=== PATIENT | male | born 1980 | race Hispanic/Latino ===

== ENCOUNTER 2017-12-21 22:23 | Emergency (ER) | payer OTHER ==
[2017-12-21] MEDS ORDERED: DEXAMETHASONE SOD PHOSPHATE 10MG/ML 1ML VIAL ONE (22:58)
[2017-12-21] MEDS ORDERED: CEFTRIAXONE SODIUM 1 GM ONE (22:59)
[2017-12-21] MEDS ORDERED: LIDOCAINE HCL-MPF 1% 2ML VIAL ONE (22:59)
== END 2017-12-21 23:10 | disposition home or self-care (01) ==
LOC: EDH 22:23
DX: J02.9 Acute pharyngitis, unspecified (principal); R21 Rash and other nonspecific skin eruption
CPT/HCPCS: 96372 ×2; 99284; J0696; J1100; J3490

== ENCOUNTER 2021-02-26 01:43 | Emergency (ER) | payer BC, OTHER ==
[2021-02-26] MEDS ORDERED: ORPHENADRINE CITRATE 30 MG/ML ML ONE (02:45)
[2021-02-26] MEDS ORDERED: KETOROLAC TROMETHAMINE 30MG/ML ONE (02:45)
[2021-02-26] MEDS ORDERED: SODIUM CHLORIDE 0.9% 1000ML 1,000 ML IV ONE (02:46)
[2021-02-26 03:15] LABS: APPEARANCE,URINE Clear (CLEAR); BILIRUBIN,URINE Negative (NEGATIVE); COLOR,URINE Yellow (YELLOW); GLUCOSE, URINE (UA) Negative (NEGATIVE); KETONES,URINE Negative (NEGATIVE); LEUKOCYTE ESTERASE ,URINE Negative (NEGATIVE); NITRATE,URINE Negative (NEGATIVE); OCCULT BLOOD,URINE Negative (NEGATIVE); PH,URINE 5.5 (5.0-8.0); PROTEIN,URINE Negative (NEGATIVE)
[2021-02-26 03:20] LABS: BASOPHILS % (AUTO) 0.9 % (0.0-5.0); EOSINOPHILS % (AUTO) 1.3 % (0.0-8.0); HEMATOCRIT 44.2 % (42-54); MEAN CORPUSCULAR HGB CONC 33.5 g/dL (32.0-36.0); MEAN CORPUSCULAR VOLUME 89.5 fL (79-99); MONOCYTES % (AUTO) 8.8 % (3.0-13.0); NEUTROPHILS % (AUTO) 73.7 % (40.0-77.0); PLATELET COUNT (AUTO) 289 K/uL (130-400); RED BLOOD CELL COUNT(AUTO) 4.94 MIL/uL (4.50-6.20); RED CELL DISTRIBUTION WIDTH 13.1 % (11.0-15.5)
[2021-02-26 03:22] LABS: CREATININE 1.1 mg/dL (0.5-1.5); POTASSIUM 4.2 mmol/L (3.5-5.1)
[2021-02-26 03:26] LABS: ALBUMIN 3.5 g/dL (3.5-5.0); BILIRUBIN,TOTAL 0.3 mg/dL (0.2-1.0); PROTHROMBIN TIME 10.9 SEC (9.6-11.6)
[2021-02-26 03:27] LABS: PARTIAL THROMBOPLASTIN TIME 25.6 SEC (26.3-35.5)
== END 2021-02-26 04:40 | disposition home or self-care (01) ==
LOC: EDH 01:43
DX: S29.012A Strain of muscle and tendon of back wall of thorax, initial encounter (principal); S29.011A Strain of muscle and tendon of front wall of thorax, initial encounter; R10.9 Unspecified abdominal pain; F14.90 Cocaine use, unspecified, uncomplicated; X58.XXXA Exposure to other specified factors, initial encounter; Y93.89 Activity, other specified; Y92.89 Other specified places as the place of occurrence of the external cause; Y99.8 Other external cause status
CPT/HCPCS: 36415; 71250; 74176; 80053; 81003; 85025; 85610; 85730; 93005; 96361; 96374; 96375; 99285; J1885; J2360; J7030

== ENCOUNTER 2021-05-20 21:42 | Emergency (ER) | payer BC ==
[~2021-05-20] VITALS: Ht 167.6 cm; Wt 113.4 kg
[2021-05-20] MEDS ORDERED: HYDR25SU38 RC (22:35)
[2021-05-20] MEDS: HYDROCODONE/ACETAMINOPHEN 10/325 MG TAB PO ONE (22:56)
[2021-05-20 22:57] VITALS: BP 168/65
== END 2021-05-20 23:08 | disposition home or self-care (01) ==
LOC: EDH 21:42
DX: K64.4 Residual hemorrhoidal skin tags (principal)

== ENCOUNTER 2024-02-29 06:34 | Day surgery (SDC) | payer BC ==
[2024-02-25 11:40] LABS: BASOPHILS # (AUTO) 0.08 K/uL (0.00-0.20); EOSINOPHILS # (AUTO) 0.11 K/uL (0.00-0.70); EOSINOPHILS % (AUTO) 1.4 % (0.0-8.0); HEMATOCRIT 47.4 % (42-54); IMMATURE GRANULOCYTE ABSOLUTE 0.05 K/uL (0-1); LYMPHOCYTES # (AUTO) 1.4 K/uL (1.0-4.8); LYMPHOCYTES % (AUTO) 17.6 % (21.0-51.0); MEAN CORPUSCULAR HEMOGLOBIN 30.9 pg (27.0-33.0); MEAN CORPUSCULAR HGB CONC 33.8 g/dL (32.0-36.0); MEAN CORPUSCULAR VOLUME 91.7 fL (79-99); MONOCYTES # (AUTO) 0.7 K/uL (0.1-1.0); MONOCYTES % (AUTO) 9.5 % (3.0-13.0); NEUTROPHILS # (AUTO) 5.4 K/uL (1.8-7.7); NEUTROPHILS % (AUTO) 69.9 % (40.0-77.0); PLATELET COUNT (AUTO) 309 K/uL (130-400); RED BLOOD CELL COUNT(AUTO) 5.17 MIL/uL (4.50-6.20); RED CELL DISTRIBUTION WIDTH 13.4 % (11.0-15.5); WHITE BLOOD COUNT (AUTO) 7.7 K/uL (4.8-10.8)
[2024-02-25 11:55] LABS: CREATININE 1.1 mg/dL (0.5-1.3); POTASSIUM 4.5 mmol/L (3.5-5.1)
[2024-02-25 12:18] VITALS: BP 140/86; PULSE 57; RESP 18
[2024-02-29] VITALS (14 sets, daily range): BP systolic 114–146; BP diastolic 65–94; PULSE 60–81; RESP 12–17
[~2024-02-29] VITALS: Ht 170.2 cm; Wt 108.9 kg
[~2024-02-29 06:34] MED LIST: SERT-439 PO
[2024-02-29] MEDS ORDERED: CEFAZOLIN SODIUM 1 GM VIAL ONE (06:54)
[2024-02-29] MEDS ORDERED: CEFAZOLIN SODIUM 2 GM VIAL ONE (06:54)
[2024-02-29] MEDS: LACTATED RINGERS 1000ML 1,000 ML IV ONE (07:24)
[2024-02-29] MEDS ORDERED: BUPIVACAINE/PF 0.5% 30ML VIAL ONE (08:05)
[2024-02-29] MEDS: BUPIVACAINE/PF 0.5% 30ML VIAL INJ ONE ×2 (08:33→09:50)
[2024-02-29] MEDS ORDERED: FAMOTIDINE 20MG VIAL IV ONE (09:05)
[2024-02-29] MEDS ORDERED: ACETAMINOPHEN 1,000 MG/100 ML VIAL IV ONE (09:05)
[2024-02-29] MEDS ORDERED: KETAMINE 50MG/ML SYRINGE 50 MG/ML DISP.SYRIN ONE (09:06)
[2024-02-29] MEDS ORDERED: PROPOFOL 10 MG/ML 20ML VIAL IV ONE (09:08)
[2024-02-29] MEDS ORDERED: ROCURONIUM BROMIDE 10MG/1ML 5ML VL ONE (09:08)
[2024-02-29] MEDS ORDERED: FENTANYL CITRATE PF 50 MCG/1 ML 2ML VIAL ONE (09:08)
[2024-02-29] MEDS ORDERED: LIDOCAINE PF 100MG/5ML (2%) SYRINGE 5ML ONE (09:08)
[2024-02-29] MEDS ORDERED: ONDANSETRON 4MG INJ ONE (09:22)
[2024-02-29] MEDS ORDERED: DEXAMETHASONE SOD PHOSPHATE 10MG/ML 1ML VIAL ONE (09:22)
[2024-02-29] MEDS ORDERED: SUGAMMADEX SODIUM 200 MG/2 ML VIAL IV ONE (09:49)
[2024-02-29] MEDS: MEPERIDINE-PF 25 MG/ML SYG ONE (10:23)
[2024-02-29] MEDS: ONDANSETRON 4MG INJ ONE (10:23)
[2024-02-29] MEDS ORDERED: HYDROCODONE/ACETAMINOPHEN 5/325 MG TAB ONE (11:00)
[2024-02-29] MEDS ORDERED: KETOROLAC 30MG VIAL (30MG/ML) ONE (11:00)
[2024-02-29] MEDS: HYDROCODONE/ACETAMINOPHEN 5/325 MG TAB PO ONE (11:02)
[2024-02-29] MEDS: KETOROLAC 30MG VIAL (30MG/ML) IVP ONE (11:02)
[2024-02-29] MEDS ORDERED: IBUP-1493 PO (11:19)
== END 2024-02-29 11:45 | disposition home or self-care (01) ==
LOC: DAH 06:34
PROVIDERS: ATTEND Surgery
DX: K42.0 Umbilical hernia with obstruction, without gangrene (principal); F32.A Depression, unspecified; Z88.3 Allergy status to other anti-infective agents
CPT/HCPCS: 80048; 85025; 36415; 49592; A6260; A4663; J7120 ×2; A4452; J0690 ×3; J3490 ×3; J3010; J1100; J2001; J2704; J2405 ×2; J1885; J0665 ×2; J2175; A4930 ×2; A4215; A4223; A4213; A4222; A4221; A4600

== ENCOUNTER 2025-07-17 17:44 | Emergency (ER) | payer BC ==
[~2025-07-17] VITALS: Ht 170.2 cm; Wt 104.3 kg
[~2025-07-17 17:44] MED LIST changes: +IBUP-1493 PO
--- NOTE | 2025-07-17 18:06 | EKG ---
[facility] Test Date: 2025-07-17 Test Time: 18:00:58 Pat Name: DINA ULLOA Department: [facility] Room: Gender: M [employer]ulatory Affairs Spec: [id number] : 1980 Requested By: CHAZ GEORGES Order Number: [id number] Reading MD: Justine Nunn Measurements Intervals [place] Rate: 88 P: 34 MS: 139 QRS: -59 QRSD: 101 T: 57 QT: 343 QTc: 415 Interpretive Statements Sinus rhythm Left anterior fascicular block Compared to ECG 02/26/2021 02:48:02 Left anterior fascicular block now present Left-axis deviation no longer present Left ventricular hypertrophy no longer present Electronically Signed On 07-18-2025 16:11:32 CDT by Justine Nunn Please click the below link to view image of tracing.
[2025-07-17 18:16] LABS: IMMATURE GRANULOCYTE ABSOLUTE 0.02 K/uL (0-1); NUCLEATED RED BLOOD CELLS 0.0 % (0.0-0.19); PLATELET COUNT (AUTO) 322 K/uL (130-400); RED BLOOD CELL COUNT(AUTO) 5.05 MIL/uL (4.50-6.20); RED CELL DISTRIBUTION WIDTH 12.8 % (11.0-15.5); WHITE BLOOD COUNT (AUTO) 8.6 K/uL (4.8-10.8)
[2025-07-17 18:27] LABS: CREATININE 1.0 mg/dL (0.5-1.3); GLOMERULAR FILTR. RATE CALC 94.0 mL/min (>90); GLUCOSE,RANDOM 130.0 mg/dL (70-105); SODIUM SERUM 141.0 mmol/L (136-145); UREA NITROGEN, BLOOD 12.0 mg/dL (7-18)
--- NOTE | 2025-07-17 18:33 | ERN ---
General Chief Complaint: Nausea,Vomiting,Diarrhea Stated Complaint: HICCUPS, CHEST PRESSURE, N/V Time Seen by MD: 17:47 Time Seen by Midlevel: 17:47 Source: patient History of Present Illness Initial Comments 45-year-old male presenting to the ER for evaluation of multiple complaints. His main concern is he has had hiccups for the past 10 days. He has visited who emergency department twice in the last week for the same complaint. Today he now reports chest discomfort with associated nausea and vomiting. He does report a recent hernia repair proximally one month ago in his concern his nausea and vomiting are related to this. Denies any other symptoms he does admit to being prescribed multiple steroids over the last week in his unsure if that is what is causing his symptoms Allergies: Coded Allergies: iodine (Unverified Allergy, Severe, FACIAL ITCHING, SWELLING, SNEEZING, 02/29/24) Home Meds Reported Medications Ibuprofen (Motrin/Advil) 800 Mg Tab, 800 MG PO TIDP PRN for PAIN, TAB 02/29/24 Sertraline HCl (Sertraline HCl) 50 Mg Tablet, 1 TAB PO DAILY 02/25/24 Past Medical History Past Medical History: No Pertinent History Past Surgical History: Other Surgical History Other: UMBILICAL HERNIA ROS Dictation CONSTITUTIONAL: Negative except for HPI HEAD/FACE: Negative except for HPI EENT: Negative except for HPI RESPIRATORY: Negative except for HPI GASTROINTESTINAL/ABDOMINAL: Negative except for HPI GENITOURINARY: Negative except for HPI MUSCULOSKELETAL: Negative except for HPI INTEGUMENTARY: Negative except for HPI NEUROLOGICAL/PSYCH: Negative except for HPI HEMATOLOGIC/LYMPHATIC: Negative except for HPI All Systems Negative, Except as noted above. 13 point review of systems assessed and all negative except for above. Physical Exam Physical Exam Dictation Vital Signs reviewed General Appearance: Alert, oriented x 3, no acute distress, well developed, nourished. Head and Face: non-traumatic. Eyes: PERRL, pink conjunctivas, eyelid no trauma, anterior chamber with arcus senilis. Ears: Pinnas intact and no signs of trauma or erythema ear canals clear and no discharge TM no erythema Nose: No discharge, no bleeding. Oropharynx: Mouth normal, tongue pink, pharynx clear,no erythema, tonsils no exudates, no abscesses noted, mucous membrane moist Neck: Supple, non-tender, no thyromegaly, no masses, no JVD, no bruits Breast:Deferred Chest:No tenderness, no crepitus, no paradoxical movement, no retractions Lungs:Clear, well-ventilated, symmetric, no rales, no wheezing, no rhonchi, no stridor, good breath sounds bilaterally Heart: Regular rate, regular rhythm, no murmur, no gallops Vascular: no peripheral edema, Abdomen: Soft, positive bowel sounds, nondistended, no guarding, nontender, no rebound, no masses no hepatomegaly, no splenomegaly, no Quijano's sign, no hernias. Rectal: Deferred Genital: Deferred Neurological: Normal speech, motor function intact, sensory function intact Musculoskeletal: Neck nontender, full range of motion, back nontender, full range of motion, Extremities: nontender, full range of motion Skin: Color pink, dry, no turgor, no rash, no lacerations, no abrasions, no contusions. Lymphatic: Deferred Results Laboratory and Microbiology Lab and Micro Result Laboratory Tests Test 07/17/25 18:08 White Blood Count 8.6 K/uL (4.8-10.8) Red Blood Count 5.05 MIL/uL (4.50-6.20) Hemoglobin 15.5 g/dL (14.0-18.0) Hematocrit 46.1 % (42-54) Mean Corpuscular Volume 91.3 fL (79-99) Mean Corpuscular Hemoglobin 30.7 pg (27.0-33.0) Mean Corpuscular Hemoglobin Concent 33.6 g/dL (32.0-36.0) Red Cell Distribution Width 12.8 % (11.0-15.5) Platelet Count 322 K/uL (130-400) Mean Platelet Volume 9.2 fL (7.5-10.5) Immature Granulocyte % (Auto) 0.2 % (0-1) Neutrophils (%) (Auto) 77.5 % (40.0-77.0) H Lymphocytes (%) (Auto) 12.6 % (21.0-51.0) L Monocytes (%) (Auto) 7.6 % (3.0-13.0) Eosinophils (%) (Auto) 1.2 % (0.0-8.0) Basophils (%) (Auto) 0.9 % (0.0-5.0) Neutrophils # (Auto) 6.6 K/uL (1.8-7.7) Lymphocytes # (Auto) 1.1 K/uL (1.0-4.8) Monocytes # (Auto) 0.7 K/uL (0.1-1.0) Eosinophils # (Auto) 0.10 K/uL (0.00-0.70) Basophils # (Auto) 0.08 K/uL (0.00-0.20) Absolute Immature Granulocyte (auto 0.02 K/uL (0-1) Nucleated Red Blood Cells 0.0 % (0.0-0.19) D-Dimer Quantitative (PE/DVT) 522 ng/mL (0-500) *H Sodium Level 141 mmol/L (136-145) Potassium Level 3.6 mmol/L (3.5-5.1) Chloride Level 105 mmol/L (101-111) Carbon Dioxide Level 26 mmol/L (21-32) Blood Urea Nitrogen 12 mg/dL (7-18) Creatinine 1.0 mg/dL (0.5-1.3) Glomerular Filtration Rate Calc 94 mL/min (>90) Random Glucose 130 mg/dL (70-105) H Total Calcium 8.4 mg/dL (8.5-10.1) L Magnesium Level 1.80 mg/dL (1.80-2.40) Total Bilirubin 0.3 mg/dL (0.2-1.0) Aspartate Amino Transf (AST/SGOT) 32 U/L (10-37) Alanine Aminotransferase (ALT/SGPT) 51 U/L (12-78) Alkaline Phosphatase 75 U/L (50-136) Troponin I High Sensitivity 6 ng/L (4-75) B-Type Natriuretic Peptide 41 pg/mL (0-100) Total Protein 7.3 g/dL (6.0-8.3) Albumin 3.5 g/dL (3.5-5.0) Lipase 23 U/L (16-77) Labs Reviewed?: Yes MDM MDM: Differential diagnosis: Acute coronary syndrome, bowel obstruction, dehydration, electrolyte abnormality, pancreatitis There are no social concerns with this patient. Prescription drug management Prescriptions will include: Medical management and examination interpretation discussions were had by me with other qualified healthcare professionals as indicated for the patient's care. ED Course Orders Procedure Category Date Status Time Cbc With Differential LAB 07/17/25 Complete 17:56 Comprehensive LAB 07/17/25 Complete Metabolic Panel 17:56 Lipase LAB 07/17/25 Complete 17:56 Magnesium LAB 07/17/25 Complete 17:56 B-Type Natriuretic LAB 07/17/25 Complete Peptide 17:56 12 Lead Ekg Tracing- EKG 07/17/25 Complete Technical 17:56 Troponin I High LAB 07/17/25 Complete Sensitivity 17:56 D-Dimer LAB 07/17/25 Complete 17:56 Ct Abdomen/Pelvis W/O CT 07/17/25 Resulted Contrast 20:58 0.9%Nacl 1000ml (Ns PHA 07/17/25 Complete 1000ml) 21:00 Ondansetron 4mg Inj PHA 07/17/25 Complete (Zofran 4mg Inj) 21:00 Famotidine 20mg Vial PHA 07/17/25 Complete (Pepcid 20mg Vial) 21:00 Chlorpromazine Hcl PHA 07/17/25 Complete (Thorazine 25mg Tab) 22:30 Current Medications Medications (Trade) Dose Ordered Sig/Laura Route PRN Reason Start Time Stop Time Status Last Admin Dose Admin Chlorpromazine HCl (ThorAZINE 25MG TAB) 25 mg ONCE ONCE PO 07/17/25 22:30 07/17/25 22:31 DC 07/17/25 22:58 Famotidine (Pepcid 20mg Vial) 20 mg ONCE ONCE IV 07/17/25 21:00 07/17/25 21:01 DC 07/17/25 22:58 Ondansetron HCl (zoFRAN 4MG INJ) 4 mg ONCE ONCE IVP 07/17/25 21:00 07/17/25 21:01 DC 07/17/25 22:58 Sodium Chloride 1,000 ml @ 0 mls/hr ONCE ONCE IV 07/17/25 21:00 07/17/25 21:01 DC 07/17/25 22:58 Vital Signs Date Time Temp Pulse Resp B/P (MAP) Pulse Ox O2 Delivery O2 Flow Rate FiO2 07/17/25 23:22 98.4 88 18 135/66 99 Room Air* 0 21 07/17/25 17:45 98.2 91 16 132/83 96 Room Air 0 DX & DISP Disposition: Discharge Departure Impression: Primary Impression: Intractable hiccups Condition: Stable Additional Instructions: Your blood work today is unremarkable. Your CT scan of the abdomen/pelvis does not show any evidence of an obstruction or any other abnormalities. Your EKG is normal. Your heart tests are normal. There was no evidence of a heart attack. Your hiccups are most likely related to the steroid medication you have been given. Follow up with your primary care doctor in 2-3 days for repeat evaluation. You were also given a one time dose of Thorazine which should help improve your hiccups. Referrals: JOANNE SANDOVAL MD (PCP) I have reviewed the case, and I agree with, Diagnosis and Plan I performed the substantive portion of the visit. I have reviewed and personally made and approve the management plan that is documented in the note by myself or the GWENDOLYN. I acknowledge for responsibility for the patient's management plan. CHAZ GEORGES Jul 17, 2025 18:33
[2025-07-17 18:42] LABS: ASPARTATE AMINOTRANSFERASE 32.0 U/L (10-37); TOTAL PROTEIN, SERUM 7.3 g/dL (6.0-8.3)
--- NOTE | 2025-07-17 21:54 | HMCIMG ---
EXAM: CT Abdomen and Pelvis without Intravenous Contrast CLINICAL HISTORY: Hernia repair. TECHNIQUE: Axial computed tomography images of the abdomen and pelvis without intravenous contrast. Dose reduction technique was used including one or more of the following: automated exposure control, adjustment of mA and kV according to patient size, and/or iterative reconstruction. CONTRAST: Without. COMPARISON: CT Chest/Ab/Pelv 02:48 02/26/21 FINDINGS: LIMITATIONS/ARTIFACTS: Soft tissue motion artifact limits evaluation. LUNG BASES: No basilar airspace consolidation or pleural effusion. LIVER: Unremarkable. GALLBLADDER AND BILE DUCTS: Unremarkable. No calcified stone. No ductal dilation. PANCREAS: Unremarkable. SPLEEN: Unremarkable. ADRENAL GLANDS: Unremarkable. KIDNEYS, URETERS, AND BLADDER: Unremarkable. No hydronephrosis or nephrolithiasis. No ureteral or bladder calculi. STOMACH AND BOWEL: No obstruction. No wall thickening. No CT evidence of colitis or acute diverticulitis. APPENDIX: Normal appendix. PERITONEUM: No free fluid. No free air. LYMPH NODES: No lymphadenopathy. REPRODUCTIVE: Unremarkable as visualized. VASCULATURE: No aortic aneurysm. ABDOMINAL WALL AND SOFT TISSUES: Small bilateral inguinal hernias containing mesenteric fat. BONES: Mild degenerative changes at L5-S1. No fracture or suspicious osseous abnormality. IMPRESSION: 1. No acute intra-abdominal or pelvic abnormality related to the hernia repair. 2. Small bilateral inguinal hernias containing mesenteric fat. /[place]
[2025-07-17] MEDS: 0.9%NACL 1000ML 1,000 ML IV ONE (22:58)
[2025-07-17] MEDS: FAMOTIDINE 20MG VIAL IV ONE (22:58)
--- NOTE | 2025-07-17 23:08 | NUR ---
discharge pending iv fluids to complete
[2025-07-17 23:22] VITALS: BP 135/66; PULSE 88; RESP 18; TEMP 98.5; O2SAT 99
== END 2025-07-17 23:40 | disposition home or self-care (01) ==
LOC: EDH 17:44
DX: R06.6 Hiccough (principal); Z88.8 Allergy status to other drugs, medicaments and biological substances; Z98.890 Other specified postprocedural states
CPT/HCPCS: 99284; 74176; 96374; 96375; 83735; 84484; 80053; 83880; 83690; 85025; 85378; 36415; 93005; J1308; J7030; Q0161; J2405

== ENCOUNTER 2025-07-19 12:59 | Emergency (ER) | payer BC ==
[~2025-07-19] VITALS: Ht 170.2 cm; Wt 104.3 kg
[2025-07-19] MEDS: LIDOCAINE HCL 2% VISCOUS 15 ML UDCUP PO ONE (13:36)
[2025-07-19] MEDS: DICYCLOMINE HCL 10 MG/5 ML ML PO ONE (13:36)
[2025-07-19] MEDS: MAG/ALUM/SIMETH 30 ML UDCUP PO ONE (13:36)
[2025-07-19 13:52] LABS: IMMATURE GRANULOCYTE ABSOLUTE 0.02 K/uL (0-1); NUCLEATED RED BLOOD CELLS 0.0 % (0.0-0.19); PLATELET COUNT (AUTO) 318 K/uL (130-400); RED BLOOD CELL COUNT(AUTO) 5.45 MIL/uL (4.50-6.20); RED CELL DISTRIBUTION WIDTH 12.8 % (11.0-15.5); WHITE BLOOD COUNT (AUTO) 8.2 K/uL (4.8-10.8)
[2025-07-19 14:00] LABS: APPEARANCE,URINE CLEAR (CLEAR); GLUCOSE, URINE (UA) NEGATIVE (NEGATIVE); LEUKOCYTE ESTERASE ,URINE NEGATIVE Leu/uL (NEGATIVE); NITRATE,URINE NEGATIVE (NEGATIVE); OCCULT BLOOD,URINE NEGATIVE (NEGATIVE)
[2025-07-19 14:01] LABS: CREATININE 0.9 mg/dL (0.5-1.3); GLOMERULAR FILTR. RATE CALC 107.0 mL/min (>90); GLUCOSE,RANDOM 109.0 mg/dL (70-105); SODIUM SERUM 140.0 mmol/L (136-145); UREA NITROGEN, BLOOD 12.0 mg/dL (7-18)
[2025-07-19 14:04] LABS: ADD UA MICROSCOPIC NO
[2025-07-19 14:07] LABS: ASPARTATE AMINOTRANSFERASE 31.0 U/L (10-37); TOTAL PROTEIN, SERUM 7.9 g/dL (6.0-8.3)
[2025-07-19 14:08] LABS: AMPHET/METH SCREEN,URINE NEGATIVE (NEGATIVE); BARBITURATE SCREEN, URINE NEGATIVE (NEGATIVE); CANNABINOID SCREEN,URINE NEGATIVE (NEGATIVE); COCAINE SCREEN,URINE NEGATIVE (NEGATIVE)
--- NOTE | 2025-07-19 14:56 | HMCIMG ---
EXAM: CR Chest, 1 View. CLINICAL HISTORY: cp COMPARISON: CT scan Feb 25 2021 FINDINGS: LUNGS: There is no mass, infiltrate, or acute pulmonary abnormality. PLEURAL SPACES: No evidence of pleural effusion or pneumothorax. MEDIASTINUM: Cardiac size and mediastinal contours within normal limits. BONES: No aggressive appearing osseous lesion seen. IMPRESSION: No acute cardiopulmonary pathology is evident. /[place]
[2025-07-19 15:18] VITALS: BP 117/65; PULSE 60; RESP 17; TEMP 98.2; O2SAT 96
--- NOTE | 2025-07-19 15:27 | ERN ---
ED Note History of Present Illness Stated Complaint: CHEST PAIN Chief Complaint: Chest Pain Time Seen by MD: 13:06 Time Seen by Midlevel: 13:10 Dictation: 45 y/o c/o lower abdominal pain, hiccups, and states for the last three days his stool has gotten darker. Patient states was seen here for the same complaint and was discharged home. Patient also states tomorrow he has not appointment with the refrigerator cabinetmaker bedside to come in today for the dark stools. Allergies: Coded Allergies: iodine (Unverified Allergy, Severe, FACIAL ITCHING, SWELLING, SNEEZING, 02/29/24) Home Meds Reported Medications Ibuprofen (Motrin/Advil) 800 Mg Tab, 800 MG PO TIDP PRN for PAIN, TAB 02/29/24 Sertraline HCl (Sertraline HCl) 50 Mg Tablet, 1 TAB PO DAILY 02/25/24 Past Medical History Past Medical History: No Pertinent History Surgical History: Other Surgical History Other: ABD HERNIA REPAIR Review of System Dictation Constitutional: Negative for fever,chills, and weight loss Eyes: Negative for injury, pain,redness, and discharge ENT: Negative for injury,pain or swelling Cardiovascular: Negative for chest pain, palpitations, and edema Respiratory: Negative for shortness of breath, cough, and wheezing, Abdomen/GI: Positive for lower abdominal pain, no nausea, no vomiting, no diarrhea, and no constipation Back: Negative for injury and pain : Negative for injury, bleeding and discharge MS/Extremity: Negative for injury and deformity Skin: Negative for rash, and discoloration Neuro: Negative for headache, weakness, numbness, tingling, and seizure Psych: Negative for suicide ideation, homicidal ideation, and hallucinations Review of Systems: was completed Initial Vital Sign VS Vital Signs Date Time Temp Pulse Resp B/P (MAP) Pulse Ox O2 Delivery O2 Flow Rate FiO2 07/19/25 13:00 98.4 94 18 114/70 97 Room Air 0 07/19/25 13:25 21 Physical Exam Dictation General: awake, alert, NAD Head/Face: Normocephalic, atraumatic Eyes: PERRL, EOMI, vision at baseline ENT: oral cavity clear, TMs clear, no signs of infection Neck: Trachea midline, supple, no nuchal rigidity Cardiovascular: RRR, normal S1/S2, No MRGs, no JVD Respiratory: CTAB, no respiratory distress, No rales or wheezes Abdomen: Soft, non-tender, non-distended, normal bowel sounds, no guarding or rebound. Skin: Warm, dry, normal turgor, no rash MS/Extremity: Pulses equal, no cyanosis, neurovascular intact, FROM Neuro: COAx4, GCS 15, strength 5/5, CN 2-12 intact, normal cerebellar exam, normal gait, Psych: Normal behavior, mood, and affect normal Results (Laboratory/Radiology) Laboratory/Radiology Laboratory Tests Test 07/19/25 13:16 White Blood Count 8.2 K/uL (4.8-10.8) Red Blood Count 5.45 MIL/uL (4.50-6.20) Hemoglobin 16.8 g/dL (14.0-18.0) Hematocrit 50.6 % (42-54) Mean Corpuscular Volume 92.8 fL (79-99) Mean Corpuscular Hemoglobin 30.8 pg (27.0-33.0) Mean Corpuscular Hemoglobin Concent 33.2 g/dL (32.0-36.0) Red Cell Distribution Width 12.8 % (11.0-15.5) Platelet Count 318 K/uL (130-400) Mean Platelet Volume 9.4 fL (7.5-10.5) Immature Granulocyte % (Auto) 0.2 % (0-1) Neutrophils (%) (Auto) 79.9 % (40.0-77.0) H Lymphocytes (%) (Auto) 9.9 % (21.0-51.0) L Monocytes (%) (Auto) 8.2 % (3.0-13.0) Eosinophils (%) (Auto) 0.9 % (0.0-8.0) Basophils (%) (Auto) 0.9 % (0.0-5.0) Neutrophils # (Auto) 6.5 K/uL (1.8-7.7) Lymphocytes # (Auto) 0.8 K/uL (1.0-4.8) L Monocytes # (Auto) 0.7 K/uL (0.1-1.0) Eosinophils # (Auto) 0.07 K/uL (0.00-0.70) Basophils # (Auto) 0.07 K/uL (0.00-0.20) Absolute Immature Granulocyte (auto 0.02 K/uL (0-1) Nucleated Red Blood Cells 0.0 % (0.0-0.19) White Cell Morphology Comment See comments Urine Color LIGHT-YELLOW (YELLOW) Urine Appearance CLEAR (CLEAR) Urine pH 5.5 (5.0-8.0) Urine Specific [place] 1.015 (1.001-1.031) Urine Protein NEGATIVE mg/dL (NEGATIVE) Urine Glucose (UA) NEGATIVE mg/dL (NEGATIVE) Urine Ketones NEGATIVE mg/dL (NEGATIVE) Urine Occult Blood NEGATIVE (NEGATIVE) Urine Nitrate NEGATIVE (NEGATIVE) Urine Bilirubin NEGATIVE mg/dL (NEGATIVE) Urine Urobilinogen 0.2 mg/dL (0.2-1.0) Urine Leukocyte Esterase NEGATIVE [place]/uL Sodium Level 140 mmol/L (136-145) Potassium Level 3.6 mmol/L (3.5-5.1) Chloride Level 103 mmol/L (101-111) Carbon Dioxide Level 28 mmol/L (21-32) Blood Urea Nitrogen 12 mg/dL (7-18) Creatinine 0.9 mg/dL (0.5-1.3) Glomerular Filtration Rate Calc 107 mL/min (>90) Random Glucose 109 mg/dL (70-105) H Total Calcium 8.6 mg/dL (8.5-10.1) Total Bilirubin 0.3 mg/dL (0.2-1.0) Direct Bilirubin 0.1 mg/dL (0.0-0.3) Aspartate Amino Transf (AST/SGOT) 31 U/L (10-37) Alanine Aminotransferase (ALT/SGPT) 55 U/L (12-78) Alkaline Phosphatase 80 U/L (50-136) Troponin I High Sensitivity 6 ng/L (4-75) Total Protein 7.9 g/dL (6.0-8.3) Albumin 3.9 g/dL (3.5-5.0) Lipase 24 U/L (16-77) Urine Opiates Screen NEGATIVE (NEGATIVE) Urine Barbiturates Screen NEGATIVE (NEGATIVE) Urine Phencyclidine Screen NEGATIVE (NEGATIVE) Urine Amphetamines Screen NEGATIVE (NEGATIVE) Urine Benzodiazepines Screen NEGATIVE (NEGATIVE) Urine Cocaine Screen NEGATIVE (NEGATIVE) Urine Marijuana (THC) Screen NEGATIVE (NEGATIVE) X-RAY Comment: [id number] [id number] IMAGING REPORT Signed PATIENT: DINA ULLOA MR#: [id number] : 1980 SEX: M AGE: 45 LOCATION: [facility] ORDER 28 STATUS: REG ER REPORT#: [id number] SERVICE 27 REASON: cp ORDERING PHYSICIAN: LUCILLE PEREZ PROCEDURE: CXR1VW - CHEST 1VW EXAM: CR Chest, 1 View. CLINICAL HISTORY: cp COMPARISON: CT scan Feb 25 2021 FINDINGS: LUNGS: There is no mass, infiltrate, or acute pulmonary abnormality. PLEURAL SPACES: No evidence of pleural effusion or pneumothorax. MEDIASTINUM: Cardiac size and mediastinal contours within normal limits. BONES: No aggressive appearing osseous lesion seen. IMPRESSION: No acute cardiopulmonary pathology is evident. /[place] DICTATED BY: EDD MEDINA MD DATE: 07/19/251554 ELECTRONICALLY SIGNED BY: EDD MEDINA MD DATE: 07/19/251554 ED Course ED Course Orders Procedure Category Date Status Time Cbc With Differential LAB 07/19/25 Complete 13:07 Basic Metabolic Panel LAB 07/19/25 Complete 13:07 Troponin I High LAB 07/19/25 Complete Sensitivity 13:07 Hepatic Function Panel LAB 07/19/25 Complete 13:07 Urinalysis Profile LAB 07/19/25 Complete 13:17 Drug Screen Urine LAB 07/19/25 Complete 13:17 Chest 1vw RAD 07/19/25 Resulted 13:28 Ketorolac PHA 07/19/25 Complete Tromethamine 15mg/Ml 13:30 Lidocaine Hcl 2% PHA 07/19/25 Complete Viscous (Lidocaine Hcl 13:30 Mag/Alum/Simeth 30ml PHA 07/19/25 Complete (Maalox Plus 30ml) 13:30 Dicyclomine Hcl PHA 07/19/25 Complete (Bentyl 10mg/5ml 13:30 Lipase LAB 07/19/25 Complete 13:16 12 Lead Ekg Tracing- EKG 07/19/25 Complete Technical 12:47 Current Medications Medications (Trade) Dose Ordered Sig/Laura Route PRN Reason Start Time Stop Time Status Last Admin Dose Admin Al Hydroxide/Mg Hydroxide (MAALox PLUS 30ML) 30 ml ONCE ONCE PO 07/19/25 13:30 07/19/25 13:33 DC 07/19/25 13:36 Dicyclomine HCl (Bentyl 10mg/5ml Syrup) 10 mg ONCE ONCE PO 07/19/25 13:30 07/19/25 13:33 DC 07/19/25 13:36 Ketorolac Tromethamine (toRADol) 15 mg ONCE ONCE IV 07/19/25 13:30 07/19/25 13:33 DC 07/19/25 13:36 Lidocaine HCl (Lidocaine HCl 2% Viscous) 10 ml ONCE ONCE PO 07/19/25 13:30 07/19/25 13:33 DC 07/19/25 13:36 Vital Signs Date Time Temp Pulse Resp B/P (MAP) Pulse Ox O2 Delivery O2 Flow Rate FiO2 07/19/25 15:18 98.2 60 17 117/65 96 Room Air* 0 21 07/19/25 13:25 98.2 69 14 130/74 96 Room Air* 0 21 07/19/25 13:00 98.4 94 18 114/70 97 Room Air 0 Medical Decision Making MDM MDM: 45 y/o c/o lower abdominal pain, hiccups, and states for the last three days his stool has gotten darker. Patient states was seen here for the same complaint and was discharged home. Patient also states tomorrow he has not appointment with the refrigerator cabinetmaker bedside to come in today for the dark stools. Patient states he has been taking Pepto-Bismol for the last two days. Blood work is unremarkable. H and H has not changed from previous visit. No transaminitis, lipase within normal range. Discussed with the patient the dark in stools could be to the use the put her menstrual this contains the color of her stool. Being that the H and H has not dropped there is no need for a rectal exam. Discussed with the patient that he needs to keep his appointment tomorrow with the refrigerator cabinetmaker as he may need further evaluation than like a colonoscopy or endoscopy. Discussed with the patient on red flag symptoms of when to return back to the emergency room. Patient verbalized understanding, answered all questions. Differential diagnosis: GI bleed, medications that affect, dehydration, Rationale: Tests considered and ordered secondary to shared decision making include: Previous outside records reviewed: Old ER visits. Risk of complication and/or morbidity or mortality of patient management: None Medications-Per medication reconciliation Need for hospitalization: Patient does not meet criteria for hospitalization. Need for emergency major/minor surgery: No There are no social concerns with this patient. Prescription drug management Prescriptions will include symptomatic care Patient's prior external medical records from other ER visits were reviewed by me as indicated. Prior testing and results from previous visits were reviewed. Prior tests were taken into account with medical decision making and resource utilization, independent historian/historians were used to obtain complete medical history. I independently interpreted the test that were performed, results were reviewed by me and considered findings on radiology if ordered. Medical management and examination interpretation discussions were had by me with other qualified healthcare professionals as indicated for the patient's care. DX & DISP Disposition: Discharge Departure Impression: Primary Impression: Intractable hiccups Additional Impression: Abdominal pain Condition: Stable Additional Instructions: There are non pharmacological to fix the due for intractable hiccups like breath-holding or Valsalva maneuver, staple cold water or small granulated sugar, Humulin either goff like zipper water through a straw and holding breath. Gargle with cold water. Follow up tomorrow as scheduled with your refrigerator cabinetmaker. Referrals: JOANNE SANDOVAL MD (PCP) Time of Disposition: 15:25 I have reviewed the case, and I agree with, Diagnosis and Plan LUCILLE PEREZ Jul 19, 2025 15:27 ANITA VALDEZ DO Jul 19, 2025 15:59
--- NOTE | 2025-07-19 15:47 | EKG ---
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
== END 2025-07-19 15:35 | disposition home or self-care (01) ==
LOC: EDH 12:59
DX: R06.6 Hiccough (principal); R10.30 Lower abdominal pain, unspecified; Z91.041 Radiographic dye allergy status; Z98.890 Other specified postprocedural states
CPT/HCPCS: 99284; 96374; 71045; 80076; 84484; 80048; 80305; 83690; 85025; 81003; 36415; 93005; J1885